=== PATIENT | male | born 1955 ===

== ENCOUNTER → 2017-09-23 | Outpatient (CLI) | payer OTHER | LOC: FCPNEURO 23:07 → MERGE 23:07 | PROVIDERS: ATTEND Psychiatry & Neurology Sleep Medicine | DX: Z46.89 Encounter for fitting and adjustment of other specified devices (principal); G47.33 Obstructive sleep apnea (adult) (pediatric); G47.34 Idiopathic sleep related nonobstructive alveolar hypoventilation ==